=== PATIENT | female | born 1950 | race African-American/Black ===

== ENCOUNTER 2017-01-26 17:43 | Emergency (ER) | payer OTHER ==
[~2017-01-26] VITALS: Ht 167.6 cm; Wt 78.9 kg
--- NOTE | ~2017-01-26 | CT4 ---
[facility] A Service of [facility] & [facility] RADIOLOGY TEXT RESULTS PATIENT: RICHARD VELEZ LOCATION: [facility] : 48 UNIT #: [id number] AGE: [address]: Gee Shelby MD SEX: F ORDER DR: [id number] [facility] [address] [place], [place] [address] [id number] E MR#: [id number] Acc #: [id number] NAME: RICHARD VELEZ : 1950 SEX: F STUDY DATE/TIME: 01/26/2017 20:14 UNIT: [facility] ROOM: STUDY DESCRIPTION: CT Abd and Pelv Wo Cont Attending Physician: Gee Shelby M.D. Ordering Physician: Gee Shelby M.D. Primary Care Physician: Fadia Plata A.P.R.N. MEDICAL IMAGING REPORT This report is preliminary unless electronic signature is present EXAM CT abdomen and pelvis without contrast INDICATION Nausea and vomiting for 3 days as well as diarrhea for 8 days as well as weakness. TECHNIQUE Axial CT images were obtained from the dome of the diaphragm through the symphysis pubis. No oral or intravenous contrast material was administered. This CT examination was performed with one or more of the following radiation dose reduction techniques: automatic exposure control, adjustment of mA and/or kV according to patient size, and iterative reconstruction. FINDINGS Images through the lung bases demonstrate some background emphysematous changes. There is some patchy consolidation at the right lung base which could reflect some atelectasis or scarring. There is cardiomegaly. There is a small hiatal hernia. Proximal small bowel is within normal limits as are the adrenal glands. Spleen appears unremarkable. Pancreas appears normal. Gallbladder is surgically absent. No focal hepatic lesions are seen. Right kidney appears normal. Patient is noted to have a nonobstructing stone within the inferior pole of the left kidney measuring about 9 mm in size. No distal ureteral or bladder stones are seen. No free fluid or adenopathy is seen within the abdomen. There is a fat containing umbilical hernia. Patient's uterus is enlarged and contains multiple calcified fibroids. Similar findings were present on the September 2016 examination. There is no evidence of mechanical bowel obstruction. Unopacified GI tract appears normal. Patient's appendix is visualized and is within normal limits. Review of bony windows demonstrates stable sclerosis of the L2 vertebral body. This was also STS. [facility] A Service of [facility] RADIOLOGY TEXT RESULTS PATIENT: RICHARD VELEZ LOCATION: [facility] : 48 UNIT #: [id number] AGE: [address]: Gee Shelby MD SEX: F ORDER DR: present in March 2015. This is of uncertain clinical significance but its stability since March 2015 would certainly be more suggestive of a benign process. IMPRESSION 1. This patient has a 9 mm nonobstructing stone seen within the inferior pole of the left kidney. No distal ureteral or bladder stones are seen. 2. Enlarged uterus containing multiple calcified fibroids. Similar findings were identified in March 2015. 3. Unopacified GI tract appears unremarkable other than a small hiatal hernia. The patient's appendix is visualized and is within normal limits. 4. Interval cholecystectomy. 5. Sclerotic appearance to the L2 vertebral body. Clinical significance is uncertain. Its stability however since March 2015 would be more suggestive of a benign process. Correlation with any prior history of malignancy however is suggested. Dictated by... Candis Andrew M.D. THIS IS AN ELECTRONICALLY VERIFIED REPORT Candis Andrew M.D. at 01/27/2017 5:48 PM LALA/emanuel TD: 01/27/2017 12:16 JOB #: [id number] MEDICAL IMAGING REPORT Page 1 of 1 COPY
--- NOTE | ~2017-01-26 | EKG ---
PATIENT: RICHARD VELEZ UNIT #: [id number] Ventricular Rate: 80 BPM Atrial Rate: 80 BPM P-R Interval: 150 ms QRS Duration: 90 ms Q-T Interval: 386 ms QTC Calculation(Bezet): 445 ms P [place]: 70 degrees Calculated R [place]: 109 degrees Calculated T [place]: 36 degrees Diagnosis Line: Normal sinus rhythm Diagnosis Line: Right atrial enlargement Diagnosis Line: Rightward axis Diagnosis Line: Nonspecific ST abnormality Diagnosis Line: Abnormal ECG Diagnosis Line: When compared with ECG of 08-MAY-2015 13:33, Diagnosis Line: No significant change was found Diagnosis Line: Confirmed by ELIZABET VAUGHN MD ([id number]) on 01/27/2017 Diagnosis Line: 5:09:51 PM INTERPRETING MD: JOHANA NICHOLS
[~2017-01-26 17:43] MED LIST: ACETAMINOPHEN325 MG PO; ADCIRCA PO; ADCIRCA20 MG PO; ALBUTEROL17 GM INH; AMLODIPINE BESYL5 MG PO; ASPIRIN EC81 M1 PO; ASPIRIN PO; ASPIRIN81 M2 PO; ATENOLOL PO; CARVEDILOL3.125 MG PO; COREG PO; DIGOX0.125 MG PO; GLUCOTROL PO; K-DUR20 ME2 PO; LANOXIN PO; LASIX PO; LETAIRIS PO; LETAIRIS10 MG PO; LEVAQUIN750 MG PO; LEVEMIR SUBQ; LEVEMIR100 UNITS/ SUBQ; LISINOPRIL PO; LISINOPRIL2.5 MG PO; LISINOPRIL5 MG PO; MIRALAX17 GM PO; ONDANSETRO8 MG/UDTAB PO; ORENITRAM PO; PANTOPRAZOLE SO40 MG PO; PHENERGAN25 M1 PO; PLAVIX PO; PRAVACHOL PO; PREDNISONE10 MG PO; PRILOSEC PO; PROTONIX PO; ZOFRANODT PO; ZOLOFT50 MG PO
[2017-01-26] MEDS ORDERED: ORENITRAM PO (18:00)
[2017-01-26] MEDS ORDERED: AMLODIPINE BESYL5 MG PO (18:00)
[2017-01-26] MEDS ORDERED: LETAIRIS10 MG PO ×2 (18:01→18:06)
[2017-01-26] MEDS ORDERED: COREG3.125 MG PO (18:01)
[2017-01-26] MEDS ORDERED: ASPIRIN81 MG PO (18:02)
[2017-01-26] MEDS ORDERED: KCL PO (18:02)
[2017-01-26] MEDS ORDERED: LOMOTIL WHITE2.5 M1 PO (18:03)
[2017-01-26] MEDS ORDERED: ONDANSETRON ODT4 MG PO (18:04)
[2017-01-26] MEDS ORDERED: ADCIRCA20 MG PO (18:05)
[2017-01-26] MEDS ORDERED: LASIX20 MG PO (18:06)
[2017-01-26] MEDS ORDERED: LANOXIN125 MCG PO (18:07)
[2017-01-26] MEDS ORDERED: HYDRALAZINE HCL25 MG PO (18:08)
[2017-01-26] MEDS ORDERED: PANTOPRAZOLE SO40 MG PO (18:08)
[2017-01-26 18:41] LABS: BASOPHIL% 0.8 % (0-2.5); EOSINOPHIL# 0.2 X10e3 (0-0.7); EOSINOPHIL% 2.6 % (0.0-7.0); HEMATOCRIT 35.9 % (35.0-45.0); HEMOGLOBIN 12.1 gm/dL (12.0-16.0); LYMPHOCYTE# 1.1 X10e3 (1.0-3.5); LYMPHOCYTE% 19.4 % (17.0-45.0); MEAN CELL VOLUME 88.2 FL (83-96); MEAN CORPUSCULAR HEMOGLOBIN 29.8 PG (28-34); MEAN CORPUSCULAR HGB CONC 33.8 g/dL (30-36); MEAN PLATELET VOLUME 7.5 FL (6.5-11.5); MONOCYTE# 0.5 X10e3 (0-1.0); MONOCYTE% 8.4 % (3.0-12.0); NEUTROPHIL% 68.8 % (40-75); PLATELET COUNT 203 X10e3 (140-420); RED BLOOD COUNT 4.08 X10e (3.90-5.30); RED CELL DISTRIBUTION WIDTH 13.4 % (11.0-15.5); WHITE BLOOD COUNT 5.8 X10e3 (4.0-10.5)
[2017-01-26 18:44] LABS: DIFF IND NO
[2017-01-26 18:49] LABS: POC - CKMB 1.9 ng/mL (0.0-7.9); POC - TROPONIN <0.05 ng/mL (<=0.05)
[2017-01-26 18:59] LABS: ALBUMIN SERUM 3.9 g/dL (3.5-5.0); BILIRUBIN, DIRECT 0.1 mg/dL (0.0-0.2); BILIRUBIN,INDIRECT 0.4 mg/dL (0.0-0.9); BILIRUBIN,TOTAL 0.5 mg/dL (0.2-2.0); CALCIUM SERUM 9.1 mg/dL (8.4-10.2); CREATININE SERUM 1.4 mg/dL (0.6-1.4); GLOM FILT RATE Estimated 44.9 mL/min (>60); POTASSIUM 4.3 mmol/L (3.5-5.1); PROTEIN TOTAL SERUM 7.6 g/dL (6.0-8.3)
[2017-01-26 19:54] LABS: URINE SOURCE CLEAN CATCH
[2017-01-26 19:59] LABS: URINE APPEARANCE CLEAR; URINE BILIRUBIN NEG (NEG); URINE BLOOD TRACE (NEG); URINE COLOR YELLOW; URINE GLUCOSE NEG (NEG); URINE KETONE NEG (NEG); URINE LEUKOCYTE ESTERASE TRACE (NEG); URINE NITRATE NEG (NEG); URINE PH 6.5 (5-8); URINE PROTEIN 2+ (NEG); URINE SPECIFIC GRAVITY 1.011 (1.003-1.035); URINE UROBILINOGEN 0.2 MG/DL (NEG)
[2017-01-26 20:02] LABS: CULTURE INDICATED? YES; URINE BACTERIA AUWI NEG (NEGATIVE); URINE SQUAMOUS EPITHELIAL CELL OCC /[HPF]
[2017-01-26 20:55] LABS: POC - CKMB 1.3 ng/mL (0.0-7.9); POC - TROPONIN <0.05 ng/mL (<=0.05)
== END 2017-01-26 21:45 | disposition home or self-care (01) ==
LOC: CED 17:43
PROVIDERS: Emergency Medicine
DX: H81.10 Benign paroxysmal vertigo, unspecified ear (principal); H65.02 Acute serous otitis media, left ear; H72.2X2 Other marginal perforations of tympanic membrane, left ear; E86.0 Dehydration; R19.7 Diarrhea, unspecified; E11.9 Type 2 diabetes mellitus without complications; I11.0 Hypertensive heart disease with heart failure; I50.9 Heart failure, unspecified; J44.9 Chronic obstructive pulmonary disease, unspecified; I25.2 Old myocardial infarction; Z95.1 Presence of aortocoronary bypass graft; Z79.899 Other long term (current) drug therapy; Z79.82 Long term (current) use of aspirin
CPT/HCPCS: 36415; 74176; 80048; 80076; 81003; 82553; 84484; 85025; 87086; 93005; 96361; 96374; 96375; 99284; J1100; J2765